=== PATIENT | male | born 1925 | race Caucasian/White ===

== ENCOUNTER 2016-08-12 14:55 | Emergency (ER) | payer MEDICARE, OTHER ==
[~2016-08-12] VITALS: Ht 172.7 cm; Wt 86.0 kg
[~2016-08-12 14:55] MED LIST: ASPI81TA82 PO; ATOR40TA49 PO; CHOL4 PO; EZET10 PO; FOLI800T12 PO; FURO20 PO; METO50TA11 PO; POTA75TA PO; PRIM50TA PO; RAMI5CAP7 PO; TAB-TAB PO; TAMS0.4C67 PO; WELL150T PO
[2016-08-12 14:57] VITALS: BP 200/79; PULSE 104; RESP 18; TEMP 97.9; O2SAT 95
--- NOTE | 2016-08-12 16:30 | PD ---
Physical Exam Date Seen by Provider: Aug 12, 2016 Narrative Patient presents with hematuria Data Data Last Documented VS Vital Signs Date Time Temp Pulse Resp B/P Pulse Ox O2 Delivery O2 Flow Rate FiO2 08/12/16 14:57 97.9 104 18 200/79 95 MDM Supervised Visit with LAWR[facility]: Yes Narrative Course I, Dr. Sullivan, have reviewed the advance practice practitioner's documentation and am in agreement, met with the patient face to face, made the diagnosis, and the medical decision making was done by me. *My assessment and Findings: Elderly man who does not appear to be in any acute distress Anya Sullivan MD Aug 12, 2016 16:30
--- NOTE | 2016-08-12 16:41 | PD ---
HPI Chief Complaint: Complaint Time Seen by Provider: 16:38 Travel History International Travel<30 days: No Contact w/Intl Traveler<30days: No Traveled to known affect area: No History of Present Illness HPI 89-year-old male presents to the emergency department for evaluation of gross hematuria that started about 10:30 to 11 AM this morning. He states that his urine is not as bloody as it had been this morning. He denies any history of hematuria. He denies any fevers or chills. No chest pain or shortness of breath. No abdominal pain. No nausea or vomiting. He denies any history of nephrolithiasis. He takes an aspirin 81 mg daily, but denies taking any other blood thinners. Patient is ambulatory and appears well. PFSH Past Medical History Cardiovascular Problems: Yes ([place]) Social History Alcohol Use: No Tobacco Use: No Substance Use: No Allergies-Medications (Allergen,Severity, Reaction): Coded Allergies: No Known Allergies (Unverified , 04/06/16) Reported Meds & Prescriptions Reported Meds & Active Scripts Active Reported Vitamin B12 (Cyanocobalamin) 100 Mcg Tab 100 Mcg PO DAILY Aspirin 81 Mg Tabdr 81 Mg PO DAILY Multivitamin Adults (Multiple Vitamins W/ Minerals) 1 Tab 1 Tab PO DAILY Folic Acid 800 Mcg Tab 800 Mcg PO DAILY Lisinopril 20 Mg Tab 20 Mg PO DAILY Questran (Cholestyramine) 4 Gm/Dose Powd 4 Gm PO DAILY 1 level scoopful of powder contains 4 grams of cholestyramine. Toprol XL (Metoprolol Succinate) 50 Mg Tab 50 Mg PO DAILY Wellbutrin SR 12 HR (Bupropion HCl) 150 Mg Tab 150 Mg PO Q12HR Potassium Chloride ER (Potassium Chloride) 10 Meq Tab 750 Meq PO DAILY Primidone 50 Mg Tab 50 Mg PO TID Tamsulosin (Tamsulosin HCl) 0.4 Mg Cap 0.4 Mg PO HS Lipitor (Atorvastatin Calcium) 40 Mg Tab 40 Mg PO HS Zetia (Ezetimibe) 10 Mg Tab 10 Mg PO DAILY Review of Systems Except as stated in HPI: all other systems reviewed are Neg General / Constitutional: No: Fever, Chills Eyes: No: Blurred Vision, Photophobia HENT: No: Headaches, Neck Stiffness Cardiovascular: No: Chest Pain or Discomfort, Palpitations, Syncope Respiratory: No: Shortness of Breath, Wheezing, Sneezing Gastrointestinal: No: Nausea, Vomiting, Abdominal Pain, Hematemesis, Hematochezia Genitourinary: Positive: Hematuria, No: Dysuria, Pelvic Pain, Flank Pain Neurologic: No: Weakness, Dizziness, Syncope, Headache, Change in Mentation Psychiatric: No: Anxiety, Depression, Suicidal Ideations Physical Exam Narrative GENERAL: Well-developed well-nourished elderly male patient, ambulatory. Afebrile. SKIN: Warm and dry. HEAD: Normocephalic. Atraumatic. EYES: No scleral icterus. No injection or drainage. NECK: Supple, trachea midline. No JVD or lymphadenopathy. CARDIOVASCULAR: Regular rate and rhythm without murmurs, gallops, or rubs. RESPIRATORY: Breath sounds equal bilaterally. No accessory muscle use. Lungs sounds are clear to auscultation. GASTROINTESTINAL: Abdomen soft, non-tender, nondistended. MUSCULOSKELETAL: No cyanosis, or edema. BACK: Nontender without obvious deformity. No CVA tenderness. Data Data Last Documented VS Vital Signs Date Time Temp Pulse Resp B/P Pulse Ox O2 Delivery O2 Flow Rate FiO2 08/12/16 14:57 97.9 104 18 200/79 95 Orders Complete Blood Count With Diff (08/12/16 16:35) Comprehensive Metabolic Panel (08/12/16 16:35) Urinalysis - C+S If Indicated (08/12/16 16:35) Ct Abd/Pel W/O Iv Contrast (08/12/16 ) Labs Laboratory Tests Test 08/12/16 16:44 White Blood Count 8.0 TH/MM3 Red Blood Count 4.38 MIL/MM3 Hemoglobin 14.6 GM/DL Hematocrit 42.5 % Mean Corpuscular Volume 97.0 FL Mean Corpuscular Hemoglobin 33.4 PG Mean Corpuscular Hemoglobin 34.4 % Concent Red Cell Distribution Width 13.5 % Platelet Count 188 TH/MM3 Mean Platelet Volume 8.7 FL Neutrophils (%) (Auto) 72.9 % Lymphocytes (%) (Auto) 17.8 % Monocytes (%) (Auto) 7.3 % Eosinophils (%) (Auto) 1.3 % Basophils (%) (Auto) 0.7 % Neutrophils # (Auto) 5.9 TH/MM3 Lymphocytes # (Auto) 1.4 TH/MM3 Monocytes # (Auto) 0.6 TH/MM3 Eosinophils # (Auto) 0.1 TH/MM3 Basophils # (Auto) 0.1 TH/MM3 CBC Comment DIFF FINAL Differential Comment Urine Color YELLOW Urine Turbidity CLEAR Urine pH 5.0 Urine Specific [place] 1.006 Urine Protein NEG mg/dL Urine Glucose (UA) NEG mg/dL Urine Ketones NEG mg/dL Urine Occult Blood MOD Urine Nitrite NEG Urine Bilirubin NEG Urine Urobilinogen LESS THAN 2.0 MG/DL Urine Leukocyte Esterase NEG Urine RBC /hpf Urine WBC 3 /hpf Urine Bacteria OCC /hpf Urine Hyaline Casts 1 /lpf Urine Mucus FEW /lpf Microscopic Urinalysis Comment CULT NOT INDICATED Sodium Level 141 MEQ/L Potassium Level 4.1 MEQ/L Chloride Level 108 MEQ/L Carbon Dioxide Level 24.6 MEQ/L Anion Gap 8 MEQ/L Blood Urea Nitrogen 14 MG/DL Creatinine 1.58 MG/DL Estimat Glomerular Filtration 42 ML/MIN Rate Random Glucose 131 MG/DL Calcium Level 8.5 MG/DL Total Bilirubin 0.4 MG/DL Aspartate Amino Transf 39 U/L (AST/SGOT) Alanine Aminotransferase 47 U/L (ALT/SGPT) Alkaline Phosphatase 72 U/L Total Protein 7.3 GM/DL Albumin 3.5 GM/DL MDM Medical Decision Making Medical Screen Exam Complete: Yes Emergency Medical Condition: Yes Medical Record Reviewed: Yes Interpretation(s) Last Impressions Abdomen/Pelvis CT 08/12/16 0000 Signed Impressions: Service Date/Time: Sunday, August 12, 2016 17:06 - CONCLUSION: 1. Hiatal hernia. 2. Calcified granulomas. 3. Nonobstructing right renal calculus. 4. Atherosclerosis. 5. Bronchiectasis and lingular scarring with probable area of scarring versus nodule. Six-month followup CT chest recommended. 6. No evidence of obstructive uropathy. 7. Soft tissue seen at the posterior midline aspect of the bladder possibly related to prostatic hypertrophy versus bladder mass. This would be best assessed with direct visualization. 8. Mild bladder wall thickening seen circumferentially in a bladder diverticulum noted. 9. Diverticulosis of the colon. Humberto Mills MD Differential Diagnosis UTI versus nephrolithiasis versus mass Narrative Course 89-year-old elderly male presents to the emergency department for evaluation grossly materia that started today. Patient does appear well and exam. CBC, CMP, UA, CT evidence/pelvis without contrast is ordered and pending. CBC shows no acute abnormality. CMP shows elevated crit and 1.58, glucose 131, no acute abnormality. UA shows moderate occult blood, occasional bacteria. No evidence of acute infection. CT abdomen/pelvis 1. Hiatal hernia. 2. Calcified granulomas. 3. Nonobstructing right renal calculus. 4. Atherosclerosis. 5. Bronchiectasis and lingular scarring with probable area of scarring versus nodule. Six-month followup CT chest recommended. 6. No evidence of obstructive uropathy. 7. Soft tissue seen at the posterior midline aspect of the bladder possibly related to prostatic hypertrophy versus bladder mass. This would be best assessed with direct visualization. 8. Mild bladder wall thickening seen circumferentially in a bladder diverticulum noted. 9. Diverticulosis of the colon. I discussed the results with the patient and gave him a copy of the CT report. I instructed him he needs to follow-up with his primary care physician for repeat CT of the chest in 6 months to follow scar versus nodule. He states he has had this in the past and it is scarring. However, he will follow-up with his primary care physician for repeat CT chest. I also instructed to follow-up with his urologist for possible prostatic hypertrophy versus bladder mass. He states he has a urologist, Dr. Stoner, and he will call to get an appointment first thing Sunday. He is instructed to return immediately for any worsening symptoms. Patient is agreeable to this plan. The patient was discharged in stable condition with instructions, including return instructions and follow up instructions. Diagnosis Primary Impression: Hematuria Referrals: Primary Care Physician Urologist Patient Instructions: General Instructions, Hematuria (ED) Additional Instructions: Follow-up with your primary care physician for repeat CT of the chest in 6 months. Follow-up with your urologist for prostatic hypertrophy versus bladder mass. Return to the emergency department for any acute worsening of symptoms. Med/Other Pt SpecificInfo: No Change to Meds Disposition: 01 DISCHARGE HOME Condition: Stable Eleni Alcala GUS Aug 12, 2016 16:41
[2016-08-12] MEDS ORDERED: ZETI10TA5 PO (16:43)
[2016-08-12] MEDS ORDERED: TAMS0.4C4 PO (16:43)
[2016-08-12] MEDS ORDERED: LIPI40TA PO (16:43)
[2016-08-12] MEDS ORDERED: FOLI800T PO (16:43)
[2016-08-12] MEDS ORDERED: POTA10TA2 PO (16:43)
[2016-08-12] MEDS ORDERED: PRIM50TA5 PO (16:43)
[2016-08-12] MEDS ORDERED: VITA100T15 PO (16:43)
[2016-08-12] MEDS ORDERED: BUPR150CR PO (16:43)
[2016-08-12] MEDS ORDERED: QUES4POW2 PO (16:43)
[2016-08-12] MEDS ORDERED: LISI-515 PO (16:43)
[2016-08-12] MEDS ORDERED: MULT1TAB84 PO (16:43)
[2016-08-12] MEDS ORDERED: ASPI1TAB69 PO (16:43)
[2016-08-12] MEDS ORDERED: TOPR50TA PO (16:43)
[2016-08-12 17:00] LABS: AUTOMATED NEUTROPHIL # 5.9 TH/MM3 (1.8-7.7); BASOPHIL # 0.1 TH/MM3 (0-0.2); BASOPHIL % 0.7 % (0.0-2.0); EOSINOPHIL # 0.1 TH/MM3 (0-0.4); EOSINOPHIL % 1.3 % (0.0-4.0); HEMATOCRIT 42.5 % (39.0-51.0); HEMO FLAGS DIFF FINAL; LYMPH % 17.8 % (9.0-44.0); LYMPHOCYTE # 1.4 TH/MM3 (1.0-4.8); MEAN CORPUSCULAR HEMOGLOBIN 33.4 PG (27.0-34.0); MEAN CORPUSCULAR HGB CONC 34.4 % (32.0-36.0); MONO % 7.3 % (0.0-8.0); NEUT % 72.9 % (16.0-70.0); PLATELET COUNT 188 TH/MM3 (150-450); RED BLOOD COUNT 4.38 MIL/MM3 (4.50-5.90); RED CELL DISTRIBUTION WIDTH 13.5 % (11.6-17.2)
[2016-08-12 17:04] LABS: BACTERIA, URINE OCC /hpf; BLOOD, URINE MOD (NEG); COMMENT (UR) CULT NOT INDICATED; CULTURE IF INDICATED CULT NOT INDICATED; GLUCOSE,URINE NEG (NEG); HYALINE CAST, URINE 1 /lpf (RARE); KETONE, URINE NEG (NEG); MUCUS URINE FEW /lpf (OCC); NITRITE,URINE NEG (NEG); URINE COLOR YELLOW (YELLW/STRAW)
--- NOTE | 2016-08-12 17:38 | RADRPT ---
EXAM DATE/TIME: 08/12/2016 17:06 [facility] COMPARISON: No previous studies available for comparison. INDICATIONS : Hematuria. ORAL CONTRAST: No oral contrast ingested. RADIATION DOSE: 19.43 CTDIvol (mGy) MEDICAL HISTORY : Cardiovascular disease. SURGICAL HISTORY : None. ENCOUNTER: Initial ACUITY: 1 day PAIN SCALE: 4/10 LOCATION: abdomen. TECHNIQUE: Volumetric scanning of the abdomen and pelvis was performed. Using automated exposure control and ad justment of the mA and/or kV according to patient size, radiation dose was kept as low as reasonably achievable to obtain optimal diagnostic quality images. FINDINGS: There is a moderate size hiatal hernia present. Liver, gallbladder, spleen, pancreas, adrenal glands are unremarkable. Scattered splenic and hepatic calcified granulomas are noted. Atherosclerotic calci fications of the aorta and iliac vessels are seen. Prostatic calcifications are noted and there is so ft tissue density at the posterior aspect of the urinary bladder at the midline likely related to pro static hypertrophy however a bladder mass is not excluded. This area measures 2.9 x 1.9 cm in transve rse and AP dimension. There is mild bladder wall thickening and a diverticulum is seen on the right o n axial image 131 measuring 18 cm. There is diverticulosis of the sigmoid colon and descending colon without evidence of diverticulitis. Diverticuli are also noted of the ascending colon. The appendix i s normal. There is no adenopathy. Left kidney is unremarkable. There is a nonobstructing right midpol e renal calculus measuring 5.3 mm. No hydronephrosis or ureteral stones. There are degenerative ocampo es of the spine. Review of lung windows demonstrate bronchiectasis in the lower lobes, and probable s carring in the lingula with an 8mm nodular focus on image 9 likely a component of scarring however a nodule is not excluded. CONCLUSION: 1. Hiatal hernia. 2. Calcified granulomas. 3. Nonobstructing right renal calculus. 4. Atherosclerosis. 5. Bronchiectasis and lingular scarring with probable area of scarring versus nodule. Six-month [facility] CT chest recommended. 6. No evidence of obstructive uropathy. 7. Soft tissue seen at the posterior midline aspect of the bladder possibly related to prostatic hype rtrophy versus bladder mass. This would be best assessed with direct visualization. 8. Mild bladder wall thickening seen circumferentially in a bladder diverticulum noted. 9. Diverticulosis of the colon. Humberto Mills MD on August 12, 2016 at 17:32 Board Certified Radiologist. This report was verified electronically.
[2016-08-12 17:46] LABS: ANION GAP 8 MEQ/L (5-15); AST (GOT) 39 U/L (15-37); BICARBONATE 24.6 MEQ/L (21.0-32.0); BLOOD UREA NITROGEN 14 MG/DL (7-18); CHLORIDE 108 MEQ/L (98-107); GLOMERULAR FILTRATION RATE 42 ML/MIN (>89); POTASSIUM 4.1 MEQ/L (3.5-5.1); SODIUM (NA) 141 MEQ/L (136-145)
[2016-08-12 17:49] LABS: ALKALINE PHOSPHATASE 72 U/L (45-117); ALT (GPT) 47 U/L (12-78); TOTAL BILIRUBIN ADULT 0.4 MG/DL (0.2-1.0)
== END 2016-08-12 18:54 | disposition home or self-care (01) ==
LOC: NEPA 14:55
DX: R31.9 Hematuria, unspecified (principal); K44.9 Diaphragmatic hernia without obstruction or gangrene; J47.9 Bronchiectasis, uncomplicated; N20.0 Calculus of kidney; K57.30 Diverticulosis of large intestine without perforation or abscess without bleeding
CPT/HCPCS: 74176; 80053; 81001; 85025

== ENCOUNTER → 2017-01-02 | Day surgery (SDC) | payer MEDICARE, OTHER ==
[~2017-01-02] MED LIST changes: +ASPI1TAB69 PO; -ASPI81TA82 PO; -ATOR40TA49 PO; +BUPR150CR PO; -CHOL4 PO; -EZET10 PO; +FOLI800T PO; -FOLI800T12 PO; -FURO20 PO; +LIDOCAINE HCL 1% PF 30 ML VIAL INFIL ONE; +LIPI40TA PO; +LISI-515 PO; +MEPERIDINE HCL 25 MG/ML VIAL IV ONE; -METO50TA11 PO; +MIDAZOLAM HCL 2 MG/2 ML VIAL IV ONE; +MULT1TAB84 PO; +POTA10TA2 PO; -POTA75TA PO; -PRIM50TA PO; +PRIM50TA5 PO; +PROPOFOL 200 MG/20 ML AMP IV ONE; +QUES4POW2 PO; -RAMI5CAP7 PO; +SODIUM CHLORIDE 0.9% 10 ML VIAL ONE; -TAB-TAB PO; +TAMS0.4C4 PO; -TAMS0.4C67 PO; +TOPR50TA PO; +VITA100T15 PO; -WELL150T PO; +ZETI10TA5 PO; +methylPREDNISolone ACETATE 40 MG/ML VIAL I-ARTICULR ONE
--- NOTE | 2017-01-05 22:05 | M6 ---
cc: Alyce NORRIS DATE 01/02/2017 1927 PROCEDURE Radiofrequency rhizotomy multiple bilateral lumbar facet joints (bilateral L3-4, L4-5 and L5-S1 facet joints) History and physical was completed and signed. Consent was signed. Procedure site was marked. Medications were listed and reconciled. Pain score was recorded. Allergies were noted. Time out was taken. Fluoroscopy time was recorded where applicable. Sedation was administered or directed by Dr. Norris. The patient was given oxygen. The patient was monitored by a registered nurse. Total procedure time was greater than 15 minutes. Radiofrequency rhizotomy multiple bilateral L3-4, L4-5 and L5-S1 facet joints lumbar facet joints. Three levels are being done because imaging studies show arthritis in all lumbar facet joints and because each facet joint is innervated by the medial branches from the nerves above and below that particular joint. The patient reported 50% or greater pain relief from previous diagnostic facet joint blocks done with fluoroscopic guidance. PROCEDURE An IV was started, blood pressure cuff, pulse oximeter and EKG were applied. The patient was placed in the prone position on a Lopez table, sedated with small amounts of Versed and fentanyl and propofol titrated to effect. Vital signs were monitored and remained stable throughout the procedure. The lumbar area was scrubbed with antimicrobial solution, prepped with 10% Betadine solution, draped with sterile drapes. Fluoroscopy was used in a slightly oblique angle ([place] dog view) to clearly visualize the target areas which were the cephalad most medial angle of the transverse processes as they met the pedicle in the anatomical location of the medial branch of the posterior primary ramus on the __ side at ___ levels and the angle of the ___ sacral ala. The skin was infiltrated with 1% Xylocaine using a 27 gauge needle. An insulated 20 gauge radiofrequency needle with a 10 mm curved tip was advanced to the above-mentioned target areas. Fluoroscopy was used to confirm the needle was properly placed and not near the nerve root. At no time did the patient report any paresthesias down the lower extremity. Once properly positioned thermal lesions took place at 80 degrees Centigrade x 100 seconds at each location. Then, a small amount of Depo-Medrol was injected at each location for a total of 40 mg of Depo-Medrol. Following this the patient was taken to the recovery room with stable vital signs, neurologically intact. W. MD MARY Hassan/ /9:03 AM /9:56 PM
== END | disposition home or self-care (01) ==
LOC: PHSDC 06:57
PROVIDERS: ATTEND Pain Medicine Interventional Pain Medicine
DX: M54.5 Low back pain (principal)
CPT/HCPCS: 64635; 64636; 99152; 99153; J1030; J2175; J2250